=== PATIENT | male | born 1985 | race African-American/Black ===

== ENCOUNTER 2017-03-06 15:20 | Emergency (ER) | payer OTHER ==
[~2017-03-06] VITALS: Ht 188 cm; Wt 82.0 kg
[~2017-03-06 15:20] MED LIST: CYCL-36 PO; HYDR-3129 PO; LORTA5 PO; WALKER STANDARD
[2017-03-06 15:22] VITALS: BP 137/70; PULSE 84; RESP 15; TEMP 98.1; O2SAT 97
--- NOTE | 2017-03-06 15:28 | PD ---
Physical Exam Date Seen by Provider: March 06, 2017 Time Seen by Provider: 15:26 Narrative Pt presents with LUQ abd pain since Friday. Presents today because he can't take the pain anymore. 05/12 pain. Pt denies any other complaints. VSS, On cell phone during interview. Data Data Last Documented VS Vital Signs Date Time Temp Pulse Resp B/P Pulse Ox O2 Delivery O2 Flow Rate FiO2 03/06/17 15:22 98.1 84 15 137/70 97 MDM Supervised Visit with DERECK: Serenity Garcia March 06, 2017 15:28
== END 2017-03-06 18:11 | disposition left against medical advice (07) ==
LOC: NED 15:20
DX: R10.12 Left upper quadrant pain (principal)
CPT/HCPCS: 99281; 99283